=== PATIENT | male | born 1965 | race American Indian/Alaskan Native ===

== ENCOUNTER 2021-02-05 07:58 | Day surgery (SDC) | payer BC ==
[2021-02-05] MEDS ORDERED: ASPIRIN EC 325 MG TAB PO NR (08:34)
[2021-02-05 09:00] LABS: Basophils # (Auto) 0.1 K/mm3 (0.0-0.1); Basophils % (Auto) 0.9 % (0.0-1.8); Eosinophils # (Auto) 0.3 K/mm3 (0.0-0.4); Eosinophils % (Auto) 4.8 % (0.0-4.3); Hematocrit 38.9 % (35.5-45.6); Hemoglobin 13.2 gm/dl (11.8-15.2); Lymphocytes # (Auto) 2.3 K/mm3 (1.2-5.4); Lymphocytes % (Auto) 35.4 % (13.4-35.0); Mean Corpuscular HGB Conc 34 % (32-34); Mean Corpuscular Volume 85 fl (84-94); Monocytes # (Auto) 0.6 K/mm3 (0.0-0.8); Monocytes % (Auto) 8.8 % (0.0-7.3); Platelet Count 256 K/mm3 (140-440); Red Blood Count 4.56 M/mm3 (3.65-5.03); Red Cell Distribution Width 15.1 % (13.2-15.2)
[2021-02-05] MEDS: SODIUM CHLORIDE 0.9% 500 ML 500 ML IV SCH ×2 (09:10→11:00)
[2021-02-05 09:11] LABS: INR 0.95 (0.87-1.13)
[2021-02-05 09:12] LABS: Partial Thromboplastin Time 28.1 Sec. (24.2-36.6)
[2021-02-05 09:33] LABS: BUN/Creatinine Ratio 12; Blood Urea Nitrogen 12 mg/dL (9-20); Calcium 8.7 mg/dL (8.4-10.2); Hemolysis Index 73
[2021-02-05] MEDS ORDERED: HEPARIN/NS 5000 UNIT/500ML 1,000 ML IR ONE (10:24)
[2021-02-05] MEDS ORDERED: NITROGLYCERIN SYRINGE 3 ML ONE (10:25)
[2021-02-05] MEDS ORDERED: LIDOCAINE (2%) 20 MG/1 ML VIAL 20 ML MDV INFILTRATI ONE (10:25)
[2021-02-05] MEDS: fentaNYL 100 MCG/2 ML INJ ONE ×2 (11:08→11:11)
[2021-02-05] MEDS: MIDAZOLAM 2 MG/2 ML INJ ONE ×2 (11:08→11:11)
[2021-02-05] MEDS: hydrALAZINE 20 MG/1 ML INJ ONE ×3 (11:09→11:57)
[2021-02-05] MEDS: VERAPAMIL 5 MG/2 ML INJ ONE ×2 (11:10→11:14)
[2021-02-05] MEDS: HEPARIN 10,000 UNITS/10 ML VIAL ONE ×2 (11:10→11:14)
[2021-02-05 13:55] VITALS: BP 141/57
--- NOTE | 2021-02-05 14:14 | Short Stay Summary ---
Short Stay Documentation Date of service: 02/05/21 - History H&P: obtained from office - Allergies and Medications Current Medications: Allergies No Known Allergies Allergy (Unverified 02/05/21 08:32) Home Medications Medication Instructions Recorded Confirmed Last Taken Type No Known Home Medications [No 02/05/21 02/05/21 Unknown History Reported Home Medications] Active Medications Sodium Chloride (Nacl 0.9% 500 Ml) 500 mls @ 50 mls/hr IV DIRECT YOSVANY Stop: 02/05/21 18:59 Last Admin: 02/05/21 11:00 Dose: 50 mls/hr Documented by: - Brief post op/procedure progress note Date of procedure: 02/05/21 Pre-op diagnosis: Exertional Chest Pain Post-op diagnosis: same Procedure: [facility]- Dictated Cath report Anesthesia: local Estimated blood loss: minimal Condition: stable - Disposition Disposition: [id number] TO HOME OR SELFCARE - Discharge Diagnoses (1) Exertional chest pain Status: Acute Short Stay Discharge Plan Activity: advance as tolerated Diet: low fat, low cholesterol, low salt Follow up with: BISHOP CAUSEY MD [Staff Physician] - 7 Days (Follow-up with Dr. Pennington or [place] office on 02/25/2021 at 8:30 AM. #[id number]) Forms: CardCath PCI D/C Instructions
--- NOTE | 2021-02-05 18:27 | Cardiac Catherization Report ---
DATE OF SERVICE: 02/05/2021 DATE OF PROCEDURE: 02/05/2021. INDICATIONS: The patient is a 55-year-old morbidly obese gentleman with history of myocardial infarction in 2016, also was noted to have nonobstructive disease and continued on medical therapy. Presently underwent preoperative stress EKG, at which time he developed chest pain and EKG suggestive of ischemia. Because of chest pain and as a part of the preoperative clearance. He is scheduled for cardiac catheterization for definitive diagnosis and treatment. The patient is aware of the procedure, potential complications, and alternatives of therapy available. DESCRIPTION OF PROCEDURE: The patient was brought to the catheterization laboratory in a fasting condition. He was evaluated for moderate sedation and was felt to be an appropriate candidate for moderate sedation. He received IV Versed and fentanyl. Right wrist area was prepared in a standard fashion with sterile drapes after cleaning with chlorhexidine solution. Local anesthesia was given in the right wrist area. Right radial artery access was obtained using a 21-gauge arterial puncture needle and a 5-Tajik slender sheath was introduced. Initially, attempted to insert a 6-Tajik multipurpose catheter; however, the patient had significant pain when inserting the 6-Tajik multipurpose catheter. Hence, it was changed to a 5-Tajik JR4 catheter to obtain the angiograms of the right coronary artery and a 5-Tajik JL3.5 catheter was used to obtain the angiograms of the left coronary artery. However, it is a difficult procedure with pain during exchange of the catheters. However, the procedure was completed using a radial access. Left ventricular pressures were obtained; however, angiograms were not performed considering the patient has normal left ventricular systolic function. After obtaining the angiograms of the right coronary artery and left coronary artery, catheters were removed and good hemostasis was achieved with applying radial band. The patient was monitored throughout the procedure with pulse oximetry, EKG and hemodynamic monitoring, and the patient tolerated the sedation well. No complications noted. At the end of the procedure, the patient is communicating normally and no focal deficits noted. Hemodynamically stable.Patient's moderate sedation started at 11:08 AM and ended at 11:59 AM The following findings were noted: Right coronary artery is a nondominant vessel. There is some narrowing distal to the catheter, most likely may be catheter-induced spasm. However, this is very small vessel. Left coronary artery arises normally from the left coronary cusp. Left main without significant disease and left LAD curves around the apex and shows smooth 30%-40% lesion in the proximal to mid area. The rest of the LAD is relatively small caliber vessel without significant disease. Circumflex artery showed mild disease. Collaterals None. FINAL IMPRESSION: [id number] coronary artery disease with a normal left ventricular systolic function noted on the echocardiogram. RECOMMENDATIONS: The above findings, patient could undergo his bariatric surgery, namely gastric sleeve surgery without undue risk. However, the patient was explained of the importance of risk factor modifications, namely control of blood pressure, his blood pressure during procedure was markedly elevated, and also exercise program. He does not do much exercise. Same were explained to his . They understand. Procedure was uncomplicated. No hematoma noted in the right wrist area. The patient will be continued on aggressive risk factor modification and medical therapy. He was advised to see Dr. López in the office in the next week. TID: [id number] RECEIPT: [id number] KIMO/MARTY LOO
--- NOTE | 2021-02-07 17:18 | Electrocardiograph Report ---
[facility] Test Date: 2021-02-05 Test Time: 08:56:18 Pat Name: RITIAK HORNE Department: Room: Gender: M Flavor Maker: ALDO : 1965 Requested By: SHYAM GODDARD Order Number: [id number] Reading MD: Shyam Goddard Measurements Intervals [place] Rate: 67 P: 54 OR: 158 QRS: 33 QRSD: 101 T: -6 QT: 405 QTc: 427 Interpretive Statements Sinus rhythm Atrial premature complex No previous ECG available for comparison Electronically Signed On 02-07-2021 17:18:24 EDT by Shyam Goddard
== END 2021-02-05 13:38 | disposition home or self-care (01) ==
LOC: CATHLABREC 07:58
PROVIDERS: ATTEND Internal Medicine
DX: R07.89 Other chest pain (principal); I25.10 Atherosclerotic heart disease of native coronary artery without angina pectoris; I25.2 Old myocardial infarction; E66.9 Obesity, unspecified; E78.00 Pure hypercholesterolemia, unspecified; I10 Essential (primary) hypertension; Z98.890 Other specified postprocedural states; Z80.3 Family history of malignant neoplasm of breast; Z68.38 Body mass index [BMI] 38.0-38.9, adult
CPT/HCPCS: 36415; 80048; 85025; 85610; 85730; 93005; 93458; 99156; 99157; C1887; C1894; J0360; J1644; J2250; J3010; J7040; Q9967